=== PATIENT | female | born 1985 | race American Indian/Alaskan Native ===

== ENCOUNTER 2021-11-22 09:35 | Emergency (ER) | payer MEDICAID ==
[2021-11-22 09:45] VITALS: BP 134/82
[2021-11-22] MEDS ORDERED: KETOROLAC 60 MG/2 ML INJ IM ONE (10:08)
[2021-11-22] MEDS ORDERED: dexAMETHasone 20 MG/5 ML VIAL IV ONE (10:08)
[2021-11-22] MEDS ORDERED: MORPHINE 4 MG/1 ML INJ IM ONE (10:08)
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
--- NOTE | 2021-11-22 10:44 | XRay Report ---
LUMBAR SPINE 2 VIEWS INDICATION / CLINICAL INFORMATION: severe back pain with fall. COMPARISON: None available. FINDINGS: VERTEBRAE: No acute fracture. No significant malalignment. DISC SPACES / FACET JOINTS:No significant abnormality. PARASPINAL SOFT TISSUES:No significant abnormality. ADDITIONAL FINDINGS: None. Signer Name: Albert Velasquez DO Signed: 11/22/2021 10:40 AM Workstation Name: [id number]
--- NOTE | 2021-11-22 10:45 | XRay Report ---
SACRUM 3 VIEW(S) INDICATION / CLINICAL INFORMATION: fall with back pain and tailbone pain COMPARISON: None available. FINDINGS: BONES / JOINT(S): No acute fracture or subluxation. No significant arthritis. SOFT TISSUES: No significant abnormality. ADDITIONAL FINDINGS: None. Signer Name: Albert Velasquez DO Signed: 11/22/2021 10:41 AM Workstation Name: [id number]
== END 2021-11-22 11:28 | disposition home or self-care (01) ==
LOC: ED 09:35
DX: M54.50 Low back pain, unspecified (principal); W19.XXXA Unspecified fall, initial encounter; J45.909 Unspecified asthma, uncomplicated; Z87.891 Personal history of nicotine dependence; Y93.89 Activity, other specified; Y92.89 Other specified places as the place of occurrence of the external cause; Y99.8 Other external cause status
CPT/HCPCS: 72100; 72220; 96372; 96374; 99283; J1100; J1885; J2270

== ENCOUNTER 2022-02-11 17:17 | Emergency (ER) | payer MEDICAID ==
[2022-02-11] MEDS ORDERED: SODIUM CHLORIDE 0.9% 1000 ML 1,000 ML IV ONE (17:18)
[2022-02-11] MEDS ORDERED: cefTRIAXone/NS 1 GM/50 ML 1 GM/50 ML BAG IV ONE (17:20)
[2022-02-11] MEDS ORDERED: ONDANSETRON 4 MG/2 ML INJ IV ONE (17:34)
[2022-02-11] MEDS ORDERED: ACETAMINOPHEN 325 MG TAB PO ONE (17:34)
[2022-02-11 17:53] VITALS: BP 119/67
--- NOTE | 2022-02-11 18:10 | XRay Report ---
CHEST 1 VIEW 02/11/2022 5:03 PM INDICATION / CLINICAL INFORMATION: Dyspnea. COMPARISON: None available. FINDINGS: SUPPORT DEVICES: None. HEART / MEDIASTINUM: No significant abnormality. LUNGS / PLEURA: No significant pulmonary or pleural abnormality. No pneumothorax. ADDITIONAL FINDINGS: No significant additional findings. IMPRESSION: 1. No acute findings. Signer Name: Ector Iqbal MD Signed: 02/11/2022 6:06 PM Workstation Name: [id number]
[2022-02-11 18:18] LABS: Hematocrit 24.1 % (30.3-42.9); Hemoglobin 8.3 gm/dl (10.1-14.3); Mean Corpuscular HGB Conc 35 % (30-34); Mean Corpuscular Volume 82 fl (79-97); Platelet Count 182 K/mm3 (140-440); Red Blood Count 2.95 M/mm3 (3.65-5.03)
[2022-02-11 18:23] LABS: Creatine Kinase MB < 1.0 ng/mL (0.0-4.0)
[2022-02-11 18:24] LABS: Red Cell Distribution Width 23.2 % (13.2-15.2)
[2022-02-11 18:25] LABS: Alanine Aminotransferase 10 units/L (7-56); Albumin 3.1 g/dL (3.9-5); BUN/Creatinine Ratio 19; Blood Urea Nitrogen 15 mg/dL (7-17); Calcium 8.7 mg/dL (8.4-10.2); Hemolysis Index 3
[2022-02-11 18:29] LABS: INR 1.09 (0.87-1.13)
[2022-02-11 19:01] LABS: Anisocytosis 2+; Basophils % (Manual) 0 % (0.0-1.8); Eosinophils % (Manual) 0 % (0.0-4.3); Hypochromasia Rare; Total Cells Counted 100
[2022-02-11] MEDS ORDERED: KETOROLAC 30 MG/1 ML INJ IV ONE (19:41)
[2022-02-11 20:26] LABS: Bilirubin,Urine NEG (Negative); Blood,Urine MOD (Negative); Color,Urine Amber (Yellow); Mucus,Urine FEW /HPF
[2022-02-11 20:33] LABS: Amphetamine Screen,Urine Negative; Benzodiazepines Screen,Urine Negative; Cocaine Screen,Urine Negative; Methadone Screen,Urine Negative; Opiate Screen,Urine Negative
[2022-02-11 20:48] LABS: Cannabinoid Screen,Urine Positive
--- NOTE | 2022-02-11 21:15 | Emergency Department Report ---
ED Shortness of Breath HPI - General Chief Complaint: Dyspnea/Respdistress Stated Complaint: SOB Time Seen by Provider: 02/11/22 17:18 Source: patient, EMS Mode of arrival: Stretcher Limitations: No Limitations - History of Present Illness Initial Comments: fever cough SOB history of asthma MD Complaint: shortness of breath, cough -: Gradual, days(s) Pain Scale: 2 Consistency: intermittent Improves With: nothing Known History Of: asthma - Related Data Home Oxygen Therapy: No Previous Rx's Medication Instructions Recorded Last Taken Type ALBUTEROL Inhaler(NF) [VENTOLIN 2 puff IH Q6H PRN #1 inha 07/30/18 Unknown Rx Inhaler(NF)] Budesonide/Formoterol Fumarate 10.2 gm IH BID #1 hfa.aer.ad 07/30/18 Unknown Rx [Symbicort 160-4.5 Mcg Inhaler] Montelukast [Singulair] 10 mg PO BID #60 tablet 07/30/18 Unknown Rx traMADoL [Ultram 50 MG tab] 50 mg PO Q6HR PRN #12 tablet 11/22/21 Unknown Rx Azithromycin [Zithromax Z-ZHEN] 250 mg PO DAILY #6 02/11/22 Unknown Rx Allergies Allergy/AdvReac Type Severity Reaction Status Date / Time No Known Allergies Allergy Unverified 07/30/18 01:05 ED Review of Systems ROS: Stated complaint: SOB Other details as noted in HPI Constitutional: denies: chills, fever Eyes: denies: eye pain, eye discharge, vision change ENT: denies: ear pain, throat pain Respiratory: denies: cough, shortness of breath, wheezing Cardiovascular: denies: chest pain, palpitations Endocrine: no symptoms reported Gastrointestinal: denies: abdominal pain, nausea, diarrhea Genitourinary: denies: urgency, dysuria, discharge Musculoskeletal: denies: back pain, joint swelling, arthralgia Skin: denies: rash, lesions Neurological: denies: headache, weakness, paresthesias Psychiatric: denies: anxiety, depression Hematological/Lymphatic: denies: easy bleeding, easy bruising ED Past Medical Hx - Past Medical History Previous Medical History?: No Hx Hypertension: No Hx Seizures: Yes Hx Asthma: Yes - Social History Smoking Status: Former Smoker Substance Use Type: Alcohol - Medications Home Medications: Home Medications Medication Instructions Recorded Confirmed Last Taken Type ALBUTEROL Inhaler(NF) [VENTOLIN 2 puff IH Q6H PRN #1 inha 07/30/18 Unknown Rx Inhaler(NF)] Budesonide/Formoterol Fumarate 10.2 gm IH BID #1 hfa.aer.ad 07/30/18 Unknown Rx [Symbicort 160-4.5 Mcg Inhaler] Montelukast [Singulair] 10 mg PO BID #60 tablet 07/30/18 Unknown Rx traMADoL [Ultram 50 MG tab] 50 mg PO Q6HR PRN #12 tablet 11/22/21 Unknown Rx Azithromycin [Zithromax Z-ZHEN] 250 mg PO DAILY #6 02/11/22 Unknown Rx ED Physical Exam - General Limitations: No Limitations General appearance: alert, in no apparent distress - Head Head exam: Present: atraumatic, normocephalic - Eye Eye exam: Present: normal appearance - ENT ENT exam: Present: mucous membranes moist - Neck Neck exam: Present: normal inspection - Respiratory Respiratory exam: Present: normal lung sounds bilaterally. Absent: respiratory distress - Cardiovascular Cardiovascular Exam: Present: regular rate, tachycardia. Absent: systolic murmur, diastolic murmur, rubs, gallop - GI/Abdominal GI/Abdominal exam: Present: soft, normal bowel sounds - Extremities Exam Extremities exam: Present: normal inspection - Back Exam Back exam: Present: normal inspection - Neurological Exam Neurological exam: Present: alert, oriented X3 - Psychiatric Psychiatric exam: Present: normal affect, normal mood - Skin Skin exam: Present: warm, dry, intact, normal color. Absent: rash ED Course Vital Signs 02/11/22 02/11/22 02/11/22 17:20 17:27 17:30 Temperature Pulse Rate 160 H 153 H 155 H Respiratory 14 20 Rate Blood Pressure 119/67 Blood Pressure 124/69 [Left] O2 Sat by Pulse 94 97 97 Oximetry 02/11/22 02/11/22 02/11/22 17:35 17:46 18:00 Temperature 101.3 F H Pulse Rate 154 H 152 H 149 H Respiratory 24 24 Rate Blood Pressure 119/67 119/67 Blood Pressure [Left] O2 Sat by Pulse 97 98 97 Oximetry 02/11/22 02/11/22 02/11/22 18:16 18:30 18:46 Temperature Pulse Rate 147 H 141 H 137 H Respiratory 17 22 22 Rate Blood Pressure 119/67 119/67 119/67 Blood Pressure [Left] O2 Sat by Pulse 98 97 96 Oximetry 02/11/22 02/11/22 02/11/22 19:00 19:16 19:30 Temperature Pulse Rate 132 H 129 H 124 H Respiratory 24 30 H 26 H Rate Blood Pressure 119/67 119/67 119/67 Blood Pressure [Left] O2 Sat by Pulse 97 97 96 Oximetry 02/11/22 02/11/22 19:46 20:00 Temperature Pulse Rate 125 H 120 H Respiratory 14 19 Rate Blood Pressure 119/67 119/67 Blood Pressure [Left] O2 Sat by Pulse 98 99 Oximetry ED Medical Decision Making - Lab Data Result diagrams: 02/11/22 17:57 02/11/22 17:18 - EKG Data -: EKG Interpreted by Me EKG shows normal: sinus rhythm Rate: tachycardia - EKG Data When compared to previous EKG there are: no significant change - Radiology Data Radiology results: report reviewed, image reviewed - Medical Decision Making work up was negative non septic ,abx fever control , HR down , no covid test now she will get tested tomorrow Critical care attestation.: If time is entered above; I have spent that time in minutes in the direct care of this critically ill patient, excluding procedure time. ED Disposition Clinical Impression: Fever, Viral illness Disposition: 01 HOME / SELF CARE / HOMELESS Is pt being admited?: No Does the pt Need Aspirin: No Condition: Stable Instructions: Fever, Adult, Viral Respiratory Infection, [id number]-[id number] Referrals: MICHAEL DORAN MD [Primary Care Provider] - 3-5 Days
--- NOTE | 2022-02-13 09:39 | Electrocardiograph Report ---
[facility] Test Date: 2022-02-11 Test Time: 17:28:37 Pat Name: ELIU ELDER Department: Room: Gender: F [employer]: BP : 1985 Requested By: MIKI BISHOP Order Number: [id number] Reading MD: Darren Glez Measurements Intervals Mikana Rate: 155 P: 50 ME: 91 QRS: 3 QRSD: 89 T: 7 QT: 282 QTc: 453 Interpretive Statements Sinus tachycardia,non specific ST changes,probably secondary to tachycardia. No previous ECG available for comparison Electronically Signed On 02-13-2022 9:39:14 EDT by Darren Glez
== END 2022-02-11 22:10 | disposition home or self-care (01) ==
LOC: ED 17:17
DX: B34.9 Viral infection, unspecified (principal); R50.9 Fever, unspecified; R56.9 Unspecified convulsions; J45.909 Unspecified asthma, uncomplicated; Z87.891 Personal history of nicotine dependence
CPT/HCPCS: 36415; 71045; 80053; 80307; 81001; 82140; 82550; 82553; 83690; 83735; 84484; 85007; 85025; 85610; 87040; 93005; 96365; 96375; 99284; J0696; J2405; J7030